=== PATIENT | female | born 1980 | race Caucasian/White ===

== ENCOUNTER 2016-09-24 21:11 | Emergency (ER) | payer OTHER ==
[~2016-09-24] VITALS: Ht 170.2 cm; Wt 64.5 kg
[2016-09-24 21:15] VITALS: BP 110/70; PULSE 80; RESP 16; O2SAT 99
--- NOTE | 2016-09-24 21:45 | ED.REPORT ---
HPI-NVD Date of Service Sep 24, 2016 ED Provider: Carolina Bah MD The patient is a 36 year old female who is currently 8.5 weeks who presents to the emergency department complaining of intermittent diarrhea that began 4 weeks ago. Her symptoms have worsened over the last 2 weeks. She has also noticed lower abdominal pain that is worse on the right side. Her stools are "liquidy and mucousy." Today she had about 4 episodes of "severe" diarrhea. She has started to feel dizzy and lightheaded. She has also had some intermittent periods of constipation, and has experienced episodes of nausea and vomiting over the last 2 weeks. The nausea and vomiting is not abnormal when she is . She was seen by her PCP yesterday and was given a referral to a fire prevention engineer. She had a pelvic ultrasound yesterday that was normal. She denies fever, chills, bloody stools, vaginal bleeding, dysuria or hematuria. She has been numerous times and has four living children. Her LNMP was July 29, EDC is May 05. Nursing Notes Stated Complaint: DIARRHEA, 8WEEKS Chief Complaint: Female Abdominal Pain Nursing Notes Reviewed: Yes Allergies: Coded Allergies: codeine (Verified Allergy, Unknown, ITCHING, 09/24/16) scopolamine (Verified Allergy, Unknown, 09/24/16) Miscellaneous Medications ([None]) General Time Seen by MD: 21:32 Chief Complaint Vomiting, Diarrhea Hx Obtained From: Patient Arrived By: Walk-in Onset Occurred: More than a week ago... (4 weeks) Symptom Duration: Intermittent Vomiting: Vomiting > 10 episodes Diarrhea: Diarrhea > 10 episodes Severity: Current: Moderate Severity: Maximum: Moderate Pertinent Negative: Pt denies other symptoms Recent Healthcare: No recent hospitalization, Recent doctor visit Similar Sx Previous: Yes Past Medical History Past Medical History Hx of an accreta and trisomy She has 4 living children Reports: Asthma Past Surgical History D&C Uterine adhesions Reports: Tonsillectomy Family History Noncontributory Smoking History Never Smoker Social History Alcohol Use: Denies alcohol use Drug Use: Denies drug use Other Social History: Good social support, , Lives with children Ambulatory Status Independent Review of Systems Constitutional: Denies: Chills, Fever GI: Reports: Abdominal pain, Constipation, Diarrhea, Nausea, Vomiting, Denies: Bloody/tarry stool, Hematemesis, Hematochezia, Melena Neurologic: Reports: Dizziness, Lightheaded Complete sys rev & neg: except as marked. Female: Reports: , Denies: Dysuria, Hematuria Physical Exam Initial Vital Signs Vital Signs (First) Date Time Temp Pulse Resp B/P Pulse Ox O2 Delivery O2 Flow Rate FiO2 09/24/16 21:15 36.9 80 16 110/70 99 Initial VS: Reviewed Head / Eyes: Atraumatic, Normocephalic, PERRL ENT: Mucous membranes moist, Conjunctiva normal, No scleral icterus Neck: Supple, Non-tender, Full range of motion Respiratory: Breath sounds normal, Clear to auscultation, No respiratory distress Cardiovascular: Regular rate & rhythm, Heart sounds normal, Intact distal pulses Lymphatic: No lymphadenopathy Extremities: Vascular intact, Neuro intact, No swelling, No tenderness Skin: Warm, Dry, No cyanosis Neurologic: Alert, Oriented, Nonfocal Psychiatric: Mood/affect normal, Behavior normal, Normal thought content General/Constitutional: Awake, Alert, Cooperative Abdomen: Soft, No guarding, No rebound, BS normoactive, No distention, No hernia, No palpable mass, No pulsatile mass Tenderness/Guarding/Rebound: Positive: Tender diffuse (mild) Interpretation & Diagnostics Lab Results Interpretation Result Diagram: 09/24/16214909/24/162149 Test 09/24/16 21:50 09/24/16 22:06 White Blood Count 6.8th/mm3 (3.8-10.1) Red Blood Count 4.57mil/mm3 (3.90-5.20) Hemoglobin 13.8g/dL (12.0-15.6) Hematocrit 39.5% (35.0-46.0) Mean Corpuscular Volume 86.4fL (81-100) Mean Corpuscular Hemoglobin 30.2pg (27.0-35.0) Mean Corpuscular Hemoglobin Concent 34.9% (32.0-37.0) Red Cell Distribution Width 12.6% (12.3-15.4) Platelet Count 203bil/L (150-400) Neutrophils (%) (Auto) 70.8% (40-74) Lymphocytes (%) (Auto) 19.1% (14-46) Monocytes (%) (Auto) 9.0% (4-12) Eosinophils (%) (Auto) 0.6% (0-5) Basophils (%) (Auto) 0.4% (0-3) Sodium Level 131mEq/L (134-144) Potassium Level 4.2mEq/L (3.5-5.2) Chloride Level 98mEq/L (97-108) Carbon Dioxide Level 21mmol/L (18-29) Blood Urea Nitrogen 6mg/dL (6-20) Creatinine 0.59mg/dL (0.57-1.00) Estimat Glomerular Filtration Rate 166mL/min (>59) Glucose Level 99mg/dL (60-99) Calcium Level 9.1mg/dL (8.5-10.1) Magnesium Level 1.8mg/dL (1.6-2.6) Total Bilirubin 0.5mg/dL (0.0-1.2) Aspartate Amino Transf (AST/SGOT) 22U/L (0-50) Alanine Aminotransferase (ALT/SGPT) 9U/L (0-32) Alkaline Phosphatase 47U/L (25-150) Total Protein 7.1g/dL (6.4-8.4) Albumin 4.4g/dL (3.4-5.0) Lipase 36U/L (13-60) Hold Urine Received (Received) Re-Eval/Medical Decision Med Decision/Clinical Course 36-year-old female who is currently approximately half weeks with history of multiple pregnancies here with nausea, vomiting, diarrhea. The nausea she is having is similar to her usual pregnancies, but she has been having approximately 4 weeks of intermittent diarrhea. Differential diagnosis includes but is not limited to C. difficile versus versus dehydration versus viral gastroenteritis. CBC does not show any leukocytosis, and CMP is unremarkable. Patient was able to tolerate by mouth in the emergency department. She was not orthostatic. She was given fluids in the emergency department and feeling better. She has already scheduled an appointment with a GI doctor for her diarrhea. She is amenable to discharge at this time and has been given very strict return precautions. Source of Hx: Old records Re-Evaluation/Progress #1: Time of Eval: 22:42 Re-Evaluation/Progress Note: Negative orthostatics. Re-Evaluation/Progress #2: Time of Eval: 23:00 Re-Evaluation/Progress Note: Rechecked the patient. Discussed results, diagnosis, and plan for discharge. Will PO trial prior to discharge. All questions were addressed. Re-Evaluation/Progress #3: Re-Evaluation/Progress Note: The patient was able to tolerate PO and will be discharged home. Counseled Regarding: Diagnosis, Lab results, Need for follow-up, When/why to return to ED Discharge & Departure Impression: Primary Impression: Diarrhea Additional Impressions: Weeks of gestation: 8 weeks Qualified Code: Z3A.08 - 8 weeks gestation of Nausea & vomiting Vomiting type: unspecified Vomiting Intractability: unspecified Qualified Code: R11.2 - Nausea with vomiting, unspecified Disposition: Home Discharge Condition All VS Reviewed: Yes Condition: Stable Patient Instructions: Acute Diarrhea (ED), (ED) Additional Instructions: Thank you for entrusting us with your care today. Your labs are reassuring. I recommend taking over the counter Unisom and vitamin B6 for your nausea and vomiting. Make sure to drink plenty of fluids. Followup with your regular doctor in the next few days for re-evaluation. Please return to the emergency department if you develop increased pain, uncontrollable vomiting, fever, chills , bloody stools, or any other new or concerning symptoms. Referrals: Keegan Villarreal ND (PCP) Scribe Attestation Portions of this note were transcribed by Suze Bone. I, Dr. Bah personally performed the history, physical exam and medical decision-making; I reviewed and confirmed the accuracy of the information in the transcribed note. Signed by: Haydee Dinero, 09/24/2016 and [id number]. copies to: Keegan Villarreal ND, Rebecca A MD Sep 24, 2016 21:45 Suze Bone Sep 24, 2016 21:48
[2016-09-24 22:00] LABS: BASOPHILS % (AUTO) 0.4 % (0-3); EOSINOPHILS % (AUTO) 0.6 % (0-5); Mean Corpuscular Hemoglobin 30.2 pg (27.0-35.0); Mean Corpuscular Volume 86.4 fL (81-100); NEUTROPHILS % (AUTO) 70.8 % (40-74); Platelet Count 203 bil/L (150-400)
[2016-09-24] MEDS ORDERED: 0.9% Sodium Chloride 1,000 ML IV ONE (22:05)
[2016-09-24 22:21] LABS: Magnesium 1.8 mg/dL (1.6-2.6)
[2016-09-24 23:45] VITALS: BP 100/46; PULSE 78; RESP 16; O2SAT 100
== END 2016-09-24 23:47 | disposition home or self-care (01) ==
LOC: SED 21:11
DX: O26.891 Other specified pregnancy related conditions, first trimester (principal); R19.7 Diarrhea, unspecified; O21.0 Mild hyperemesis gravidarum; O99.611 Diseases of the digestive system complicating pregnancy, first trimester; K59.00 Constipation, unspecified; R10.84 Generalized abdominal pain; R42 Dizziness and giddiness; J45.909 Unspecified asthma, uncomplicated; Z3A.08 8 weeks gestation of pregnancy; Z88.5 Allergy status to narcotic agent; Z88.8 Allergy status to other drugs, medicaments and biological substances
CPT/HCPCS: 36415; 80053; 81025; 83690; 83735; 85025; 96360; 99284; J7030

== ENCOUNTER 2017-03-04 05:11 | Inpatient (IN) | payer OTHER ==
[2017-03-04] MEDS ORDERED: Lactated Ringer's 1,000 ML IV ONE (05:55)
[2017-03-04] MEDS ORDERED: Indomethacin 25 mg Capsule PO ONE (05:55)
[2017-03-04] MEDS ORDERED: Betameth Ace-Betam SodPhos 6 mg/mL 5 mL Inj IM ONE (05:55)
[2017-03-04] MEDS ORDERED: Magnesium Sulfate 20 Gm/500 mL Water Premix IV ONE (06:10)
[2017-03-04] MEDS ORDERED: Magnesium Sulfate 4 Gm/100 mL Water Premix IV ONE (06:10)
[2017-03-04] MEDS ORDERED: Magnesium Sulf 4 Gm/100 mL H2O 4 GM in IV Premix 1 EACH IV ONE (06:30)
[2017-03-04] MEDS ORDERED: Magnesium Sulf 20 Gm/500mL H2O 20 GM in IV Premix 1 EACH IV SCH (06:30)
[2017-03-04] MEDS ORDERED: Lidocaine 2% 6mL Topical Jelly ONE (07:52)
[2017-03-04] MEDS ORDERED: Sodium Chloride LOK Flush 10 mL Syringe IVFLUSH SCH (08:30)
--- NOTE | 2017-03-04 09:38 | DIS ---
[address] [address] TRANSFER SUMMARY PATIENT: PASTOR DISLA : 1980 MR#: [id number] ADMIT: 03/04/2017 JOB ID: [id number] SERVICE DATE: 03/04/2017 HISTORY: This is a 36-year-old female. She is 9, para 4-0-4-4 at 31 weeks . She presented to the [facility] for contractions. She was noted she was bruna frequently every 3 minutes and she was noticed that she was not ruptured. Magnesium started for labor and betamethasone started for labor. When I presented for my shift at 7 o'clock, the patient's contraction has been spacing out from every 2-3 minutes to every 7-8 minutes. heart tracing was category one. The patient has been following up with Dr. Will Shaffer for this whole at [facility]. She is strongly decided to delivered at [facility] with Dr. Will Shaffer. Patient has had a complicated OB history. She had a history of three normal vaginal deliveries and then she had three miscarriages with D and C's, complicated with Asherman syndrome and hysteroscopy adhesiolysis. 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 She had another full-term delivered at [facility]. She delivered at 39 weeks; although, she had a history of contractions. She was complicated with placenta accreta after the delivery ended up with D and C, blood transfusion; otherwise, she declined medication allergies. PAST MEDICAL HISTORY: She has a history of asthma, no inhaler needed for the whole . PAST SURGICAL HISTORY: Including multiple D and C's, hysteroscopy and tonsillectomy. SOCIAL HISTORY: She is not smoking. She declined alcohol use or any drug usage. FAMILY HISTORY: Not significant. PHYSICAL EXAMINATION: Her blood pressure and pulse in normal range. She had no fever. Her contractions gradually spacing out during my evaluation with her. Her heart tracing was category one. The digital examination noticed she is 2 cm dilated, posterior cervix, soft, 60% to 70% effaced and -2 station. During my evaluation, when she was on magnesium, she was complaining of the urge to urinate. Recommended to have Leahy catheter placed, drained out 1000 mL of clear, white yellowish urine, but patient has a lot of discomfort with the Leahy catheter and has strongly requested to get the Leahy catheter removed. The Leahy catheter was removed and she is reluctant to replace it at this time. During my examination, she is complaining of trickling of fluid in her vagina. I did speculum examination. No pulling of fluid or leaking of fluid from cervix and the AmniSure showed negative findings. ASSESSMENT AND PLAN: A 36-year-old female, 9, para 4-0-4-4 at 31 weeks labor on magnesium and started at 6:30 and her 1st dose of betamethasone started at 6:30. 1. Patient strongly desired to be transferred to [place]; although as a general strategy, we will transfer her to the closest hospital that we will be [place]. I discussed with Dr. Will Shaffer whose has been seeing the patient and he is accepting this patient. At this time, patient has occasional contractions. No vaginal bleeding. No leaking of fluid. We used ambulance for transfer. 2. Routinely Leahy catheter should be placed for magnesium management. The patient felt a lot of discomfort and very anxious about putting a Leahy catheter in at this time. Since I am aware, patient has normal urine output by the previous drainage not concerning about renal problems, I will allow her at this time go without a Leahy catheter, but I informed the patient a Leahy catheter may be needed in the next facility. Patient understood. Informed consent signed for transfer. WU
== END 2017-03-04 09:21 | disposition short-term general hospital (02) | DRG 778 ==
LOC: FBCO 05:11 → FBC 08:01
PROVIDERS: ADMIT Obstetrics & Gynecology; ATTEND Obstetrics & Gynecology
PROC: 3E033GC Introduction of Other Therapeutic Substance into Peripheral Vein, Percutaneous Approach (ICD-10-PCS; principal; 2017-03-04)
DX: O60.03 Preterm labor without delivery, third trimester (principal); Z3A.31 31 weeks gestation of pregnancy